=== PATIENT | female | born 1990 | race Caucasian/White ===

== ENCOUNTER 2017-01-03 19:57 | Emergency (ER) | payer OTHER ==
[~2017-01-03 19:57] MED LIST: CIPROFLOXACIN500 M3 PO
== END 2017-01-03 20:45 | disposition left against medical advice (07) ==
LOC: ED 19:57
DX: Z53.21 Procedure and treatment not carried out due to patient leaving prior to being seen by health care provider (principal)

== ENCOUNTER 2017-01-04 13:09 | Emergency (ER) | payer OTHER ==
[~2017-01-04] VITALS: Ht 162.6 cm; Wt 62.1 kg
[2017-01-04 15:32] VITALS: BP 115/84
== END 2017-01-04 15:32 | disposition home or self-care (01) ==
LOC: ED 13:09
DX: S61.212A Laceration without foreign body of right middle finger without damage to nail, initial encounter (principal); S61.214A Laceration without foreign body of right ring finger without damage to nail, initial encounter; X58.XXXA Exposure to other specified factors, initial encounter; Y99.8 Other external cause status; Y93.89 Activity, other specified; Y92.89 Other specified places as the place of occurrence of the external cause
CPT/HCPCS: 90715

== ENCOUNTER 2019-10-15 20:26 | Emergency (ER) | payer OTHER ==
[~2019-10-15] VITALS: Ht 162.6 cm; Wt 89.8 kg
[2019-10-15 20:38] VITALS: Ht 162.6 cm; Wt 89.8 kg
[2019-10-15 23:09] VITALS: BP 128/91
== END 2019-10-15 23:09 | disposition home or self-care (01) ==
LOC: ED 20:26
DX: J20.9 Acute bronchitis, unspecified (principal); R51 Headache; Z87.442 Personal history of urinary calculi; Z87.19 Personal history of other diseases of the digestive system

== ENCOUNTER 2020-02-27 17:04 | Emergency (ER) | payer OTHER, SELFPAY ==
[~2020-02-27] VITALS: Ht 162.6 cm; Wt 86.2 kg
[2020-02-27 17:49] VITALS: Ht 162.6 cm; Wt 86.2 kg
[2020-02-27 19:53] VITALS: BP 120/89
== END 2020-02-27 19:53 | disposition home or self-care (01) ==
LOC: ED 17:04
DX: J30.9 Allergic rhinitis, unspecified (principal); R05 Cough; Z20.828 Contact with and (suspected) exposure to other viral communicable diseases
CPT/HCPCS: Q0092; U0003-CS

== ENCOUNTER 2020-05-29 22:15 | Emergency (ER) | payer OTHER ==
[~2020-05-29] VITALS: Ht 162.6 cm; Wt 90.7 kg
[2020-05-29 22:16] VITALS: Ht 162.6 cm; Wt 90.7 kg
[2020-05-29 23:29] VITALS: BP 128/93
== END 2020-05-29 23:30 | disposition home or self-care (01) ==
LOC: ED 22:15
DX: J02.9 Acute pharyngitis, unspecified (principal); K60.2 Anal fissure, unspecified; Z87.442 Personal history of urinary calculi; Z87.19 Personal history of other diseases of the digestive system
CPT/HCPCS: J8540